=== PATIENT | female | born 1985 | race African-American/Black ===

== ENCOUNTER 2021-09-23 01:16 | Emergency (ER) | payer MEDICAID ==
[~2021-09-23] VITALS: Ht 167.6 cm; Wt 64.9 kg
--- NOTE | 2021-09-23 01:40 | NUR ---
BIBRA 58 FROM [facility] C/O OD. GIVEN NARCAN PUFF CHIEF LIFESTYLE OFFICER. PATIENT AROUSABLE TO STIMULI. PLACED IN BED 14 ON MONITOR AND POX. PATIENT HAS NON LABORED EVEN BREATHING.
--- NOTE | 2021-09-23 02:09 | NUR ---
ADULT REMEDIAL EDUCATION INSTRUCTOR @ BEDSIDE
[2021-09-23 02:24] LABS: BASOPHILS % (AUTO) 0.4 % (0.0-2.0); EOSINOPHILS % (AUTO) 0.1 % (0.0-6.0); HEMATOCRIT 36 % (33-45); HEMOGLOBIN 11.6 g/dL (11.5-14.8); LYMPHOCYTES # (AUTO) 0.4 K/uL (0.8-4.8); LYMPHOCYTES % (AUTO) 7.4 % (20.0-44.0); MEAN CORPUSCULAR HGB CONC 32 g/dl (31.0-36.0); MEAN CORPUSCULAR VOLUME 85 fL (82-100); MONOCYTES # (AUTO) 0.4 K/uL (0.1-1.30); MONOCYTES % (AUTO) 6.4 % (2.0-12.0); NEUTROPHILS % (AUTO) 85.7 % (43.0-81.0); PLATELET COUNT (AUTO) 258 K/uL (150-450); RED BLOOD CELL COUNT(AUTO) 4.28 MIL/uL (4.0-5.2); WHITE BLOOD COUNT (AUTO) 5.8 K/uL (4.3-11.0)
[2021-09-23 02:33] LABS: CALCIUM, SERUM 9.4 mg/dL (8.5-10.1); CARBON DIOXIDE 26 mmol/L (21-32); CHLORIDE 104 mmol/L (98-107); CREATININE 0.8 mg/dL (0.6-1.3); GLUCOSE 97 mg/dL (74-106); POTASSIUM 3.8 mmol/L (3.5-5.1); SODIUM SERUM 138 mmol/L (136-145); UREA NITROGEN, BLOOD 10 mg/dL (7-18)
[2021-09-23 02:48] LABS: ALANINE AMINOTRANSFERASE 28 U/L (12-78); ALBUMIN 3.6 g/dL (3.4-5.0); ALCOHOL, BLOOD < 3 mg/dL (0-0); ALKALINE PHOSPHATASE 63 U/L (46-116); ASPARTATE AMINOTRANSFERASE 21 U/L (15-37); BILIRUBIN,DIRECT 0.1 mg/dL (0.0-0.2); BILIRUBIN,TOTAL 0.2 mg/dL (0.2-1.0); TOTAL PROTEIN, SERUM 7.6 g/dL (6.4-8.2)
[2021-09-23 02:49] LABS: ACETAMINOPHEN 0 ug/ml (10-30)
[2021-09-23 05:55] LABS: BILIRUBIN,URINE NEGATIVE (NEGATIVE); COLOR,URINE YELLOW (YELLOW); LEUKOCYTE ESTERASE ,URINE LARGE (NEGATIVE); NITRITE, URINE POSITIVE (NEGATIVE); PH,URINE 8.5 (5.0-8.0); PROTEIN,URINE NEGATIVE (NEGATIVE); UGLUCOSE NEGATIVE (NEGATIVE); UROBILINOGEN,URINE 0.2 EU/dL (0.2)
[2021-09-23 06:23] LABS: BACTERIA,URINE Many /HPF (None Seen); SQUAMOUS EPITHELIAL CELL,UR Few /HPF (None Seen); WBC,URINE TOO NUMEROUS TO COUN /HPF (0-3)
[2021-09-23] MEDS ORDERED: CEFTRIAXONE 1GM BAG (ER ONLY) 1 GM/50 ML PIGGYBACK IV ONE (06:30)
[2021-09-23] MEDS ORDERED: CEPH500C2 PO (06:33)
[2021-09-23] MEDS ORDERED: NALO4SPR NS (06:33)
[2021-09-23] MEDS ORDERED: CEFTRIAXONE 1 G VIAL ONE (06:34)
--- NOTE | 2021-09-23 07:45 | NUR ---
THE PATIENT IS RECEIVED IN ER BED #14. SLEEPING. RESPONSIVE TO VERBAL STIMULI. RESPIRATION REGULAR AND UNLABORED. WILL CONTINUE TO MONITOR THE PATIENT.
--- NOTE | 2021-09-23 10:06 | NUR ---
SW met with pt. bedside to provide MAT resources and interview pt. for suspected Opiate OD. However, pt. is still drowsy and not able to engage in meanignful conversation at thsi time. SW will rfollow up at a later time. SW notified nursing.
--- NOTE | 2021-09-23 11:01 | NUR ---
THE PATIENT IS ALERT AND ORIENTED X4. DENIES PAIN. IN ROOM AIR AND DENIES SOB. RESPIRATION REGULAR AND UNLABORED. DENIES SI/HI. DENIES HAVING ANY HALLUCINATIONS. WILL CONTINUE TO MONITOR THE PATIENT.
--- NOTE | 2021-09-23 11:25 | NUR ---
Note lin in EDM - 09/23/21 at 1146 by DENNIS Patient discharged to home in stable condition. RX Written and verbal after care instructions given. Patient verbalizes understanding of instruction. PT ambulatory with a steady gait.
--- NOTE | 2021-09-23 11:46 | NUR ---
PT ADMITS TO S/I WITH A PLAN TO OD ON PSYCH MEDS AND JUMP OFF A DENISE. AGREES TO [facility]. NOTIFIED GRICEL GARCIA. 1:[address]
--- NOTE | 2021-09-23 13:26 | NUR ---
FOOD GIVEN TO PT; PT SLEEPING AT THIS TIME
--- NOTE | 2021-09-23 13:52 | NUR ---
COVID SWAB COLLECTED AND SENT TO LAB
--- NOTE | 2021-09-23 14:10 | NUR ---
SS Consult: SS Consult requested for homelessness, possible drug abuse & SI. The pt. is a 33-year-old Black female that came to the ED due to OD on possible opiates per EMR. Upon EMR, pt. was given Narcan by paramedics. Upon SS consult, the pt. is Alert & Oriented x 4 and makes appropriate eye contact. The pt. appears unkempt. Pt. presents with an elevated mood and affect. Pt. has pressured speech and circumstantial thought process. The pt. states she intentionally OD on her psych medication: Zyprexa & [place] with the intent to commit suicide. Per pt. she has been diagnosed with Schizoaffective Disorder Bipolar Type. Per pt. she was experiencing auditory hallucination, & ideas of reference last night. Pt. states she then felt overwhelmed that her mental health would not improve and decided to try to end her life. Pt. states she sanchez not know how she arrived at the hospital. SW offered voluntary placement at a psychiatric hospital and pt. stated that she currently does not have thoughts of suicide anymore and "just needed to eat". Pt. states she would like to return to the nursing home she was previously residing at: [facility] [[address] [facility] [address]; [phone]]. Pt. states she can get her psychiatric medication refilled at [facility] [phone]. Pt. states she sees psychiatrist: Dr. Christen Sheth there. SW notified pt. that SW will call division traffic superintendent to evaluate her. Pt. is agreeable. Pt. states she ambulates independently. MONSERRAT explored pt.'s drug & ETOH use. Pt. denies any drug or alcohol abuse. Pt. denies current HI and states she has intermittent auditory hallucinations and no visual hallucinations. Pt. states she receives EBT, & general relief. SW explored pt.'s support system. Pt. states he has no support system except her. Plan: MONSERRAT called division traffic superintendent, Parminder Schneider [phone]. Per Art, he will see pt. as soon as possible. Pt. signed homeless waiver & it was placed in the pt.'s chart. MONSERRAT provided homeless resources to pt. and she accepted them. MONSERRAT gave report to Dr. Anderson & Dr. Orellana. Year-round shelters: [facility] [address] [place] [address] ; [facility] [place] [place] [address]; [facility] [address] [facility] [address] Winter Shelters: SPA 2 | [facility] Ch[facility]cProvider: [facility] Address: Confidential (call for location ) Population Served: Coed # of Beds: 57 SPA 4 | [facility] Provider: [facility] Last Address: [address] [facility] [address] # of Beds: 49 Population Served: Coed SPA 6 | [facility] Provider: Home [facility] Last Address: [address] [facility] [address] # of Beds: 49 Population Served: Coed Gopal August[facility] Provider: Joe Auguste DETerry Address: [address] [facility] [address] # of Beds: 20 Population Served: Women ARASH Facility Provider: Home [facility] Last Address: [address] [facility] [address] # of Beds: 30 Population Served: Women SPA 8 | [facility] Provider: Jorge hilton Emilie Address: [address] [facility] [address] # of Beds: 65 Population Served: Coed Hygiene: [facility]: [address] ; [facility] [address] [facility] ; [facility] [address] . Food Resources: [place] [employer] [facility] at [facility]- [address] [place]; Meet Each Need with Dignity ([facility]) [address] [facility] Campus[employer]; [facility] [address] [facility]; [facility] [address] [place]. Mental Health resources provided: [facility] [address] [place], [place] [address] ; [facility] [address] [facility] [address], [place], [place] [id number] ; [facility] [address] [place], [place] [id number] ; [facility] [address] [place], [place] [address] Healthcare Clinics: [facility] [address] [facility], [address] [place]. [place] ; [facility] [address] [facility] [address] [place] [address]; [facility] [address] [facility] [place] [address] 902) [phone] Counseling--Outpatient [facility] [address] [facility], [place] [address] (Specializes in in-depth psychotherapy for emotional distress: anxiety, depression, interpersonal conflicts, life transitions, childhood abuse) [facility]ance Center [address] [place], [place] [id number] (Assist with solving problem marital difficulties, separation & divorce, aging parents, & grief, chronic & terminal illness) [facility] [address] [place] [address] (Deal with loss & grief, anxiety, marital difficulties) Homebound/Mental Health Services [address] [facility], [address] [place], [place] [address] (Provide in-home mental services to people who are incapable of leaving their homes) [facility] Elder[facility] Senior Service/Resource Center [address] [facility]. [place], [place] [phone] [facility] [address] [facility]. [place], [place] [address] PSYCHIATRIC OUTPATIENT SERVICES [facility] Partial Hospitalization and Intensive Outpatient Program (Managed Care and [place] Only)[address] [facility] [phone] [facility] Partial Hospitalization and Outpatient [address] [place], [place] [phone] YOBANY STRUOD [facility] [place] [address] [facility] [address] [place], [place] [phone] [facility] Partial Hospitalization and Outpatient [id number] [place] [facility] Yobany Stroud, [phone] Substance Abuse resources provided included: [facility] Substance Abuse Self-Helpline ([facility]) ; [facility] [address] [facility]. [place] [address] ; [facility] [place] [address] [facility] [address] ; [facility] Rehabilitation Program [address] [facility] [place] [address] ; [facility] [address] [facility] [phone] ; [facility] Centers [address] [facility] [address] ; [facility] [address] [facility] [id number] ; [facility] Substance Abuse Helpline([facility])-[facility] ; [facility] ; [facility] [place]; [facility]; [facility] [place]; [facility] Yobany Daleradha; [facility]; [place]; [facility] [place]; [facility], [facility]. Jana Lewis; Alcoholics Anonymous -sfv; Bright ; Marijuana Anonymous -SFV; Narcotics Anonymous [email or web address];
--- NOTE | 2021-09-23 14:15 | NUR ---
MONSERRAT called backhaul driver, Parminder Schneider [phone]. Per Art, he will see pt. as soon as possible. MONSERRAT called and spoke to admitting regarding pt.'s insurance.
--- NOTE | 2021-09-23 15:32 | NUR ---
Parminder Schneider psych clinician at the bedside
--- NOTE | 2021-09-23 16:56 | NUR ---
CALLED [facility] AND SET UP S TRANSPORT TO [facility]. ETA 1800
[2021-09-23 17:00] VITALS: BP 123/67
--- NOTE | 2021-09-23 17:07 | NUR ---
REPORT GIVEN TO MAGGIE HICKS #[phone]
--- NOTE | 2021-09-23 17:19 | NUR ---
URINE COLLECTED AND SENT TO LAB
--- NOTE | 2021-09-23 18:21 | NUR ---
REPORT GIVEN TO AMBULANCE STAFF. THE PATIENT IS DISCHARGED TO [facility] IN STABLE CONDITON VIA [facility].
== END 2021-09-23 18:23 ==
LOC: EDBD 01:30 → ER 01:30
DX: T40.602A Poisoning by unspecified narcotics, intentional self-harm, initial encounter (principal); R40.0 Somnolence; Y92.89 Other specified places as the place of occurrence of the external cause; Z20.822 Contact with and (suspected) exposure to COVID-19; R00.0 Tachycardia, unspecified; N39.0 Urinary tract infection, site not specified
CPT/HCPCS: 36415; 80048; 80076; 80143; 80307; 80320; 81001; 84703; 85025; 87077; 87086; 87186; 87426; 96365; 99284; C9803; J0696; G0480